=== PATIENT | male | born 1985 | race Two or more races ===

== ENCOUNTER 2017-11-27 18:02 | Emergency (ER) | payer BC ==
--- NOTE | 2017-11-27 19:23 | EDM.PDOC ---
ED HPI GENERAL MEDICAL PROBLEM - General Chief Complaint: Genitourinary Problem Stated Complaint: PASSED OUT Time Seen by Provider: 11/27/17 18:39 Source of Information: Reports: Patient History Limitations: Reports: No Limitations - History of Present Illness INITIAL COMMENTS - FREE TEXT/NARRATIVE: Patient is a 32-year-old male who presents to the ED complaining of intermittent pain with urination with hematuria. Patient states today while urinating he had pain at the end of his void with blood present. Patient states due to the blood and pain, minutes after the episode became queasy, dizzy , hot, clammy that required him to lay down. 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 He denies any fever, abdominal pain, nausea or vomiting, history of STDs or abnormal discharge. He is in a monogamous relationship with his with no concerns for STDs. States he's had experienced similar symptoms in the past but took a antibiotic that was left over prior to being evaluated by a provider with unknown diagnosis. He has no history of prostatitis, orchitis, epididymitis, and/or testicle torsion. Pain is currently 1 out of 10. He's noticed mild swelling to his right testicle. He denies any additional medical history. He is on no meds. Surgical history none. Does not smoke or use recreational drugs. Alcohol use rarely. Patient denies any pain with ejaculation. Had sexual intercourse 2 days ago with no discomfort. There's been no recent trauma that may have precipitated discomfort. Left Lower Abdominal Pain Score (Numeric/FACES): 1 - Related Data Allergies Allergy/AdvReac Type Severity Reaction Status Date / Time egg Allergy Rash Verified 11/27/17 18:13 peanut Allergy Rash Verified 11/27/17 18:13 shellfish derived Allergy Hives Verified 11/27/17 18:13 Home Meds: Home Meds Ciprofloxacin HCl [Cipro] 500 mg PO BID #20 tablet 11/27/17 [Rx] Doxycycline [Vibramycin] 100 mg IV Q12H #60 vial 11/27/17 [Rx] Past Medical History - Past Health History Medical/Surgical History: Denies Medical/Surgical History Neurological History: Reports: Other (See Below) Other Neuro History: Sensitive vagal nerve Social & Family History - Family History Family Medical History: Noncontributory - Tobacco Use Smoking Status *Q: Never Smoker - Recreational Drug Use Recreational Drug Use: No ED ROS GENERAL - Review of Systems Review Of Systems: See Below Constitutional: Reports: No Symptoms HEENT: Reports: No Symptoms Respiratory: Reports: No Symptoms Cardiovascular: Reports: No Symptoms GI/Abdominal: Reports: No Symptoms : Reports: Dysuria, Hematuria. Denies: Discharge, Flank Pain, Frequency, Irregular Menses, Pain, Urgency, Urinary Retention Musculoskeletal: Reports: No Symptoms Skin: Reports: No Symptoms Neurological: Reports: Other (vasovagal near syncope episode) ED EXAM, RENAL/ - Physical Exam Exam: See Below Exam Limited By: No Limitations General Appearance: Alert, WD/WN, Anxious Ears: Hearing Grossly Normal Nose: Normal Inspection Throat/Mouth: Normal Voice, No Airway Compromise Head: Atraumatic, Normocephalic Neck: Normal Inspection, Supple Respiratory/Chest: No Respiratory Distress, Lungs Clear, Normal Breath Sounds Cardiovascular: Normal Peripheral Pulses, Regular Rate, Rhythm GI/Abdominal: Normal Bowel Sounds, Soft, Non-Tender, No Organomegaly, No Distention (Male) Exam: No Hernia, Cremasteric Reflex, Testicular Tenderness (R) (0-10, 1). No: Scrotal Swelling, Scrotum Tenderness (R), Testicular Mass Rectal (Males) Exam: Deferred Neurological: Alert, Oriented, CN II-XII Intact, Normal Cognition, No Motor/ Sensory Deficits Psychiatric: Normal Affect, Normal Mood Skin Exam: Warm, Dry, Intact, Normal Color, No Rash Course - Vital Signs Last Recorded V/S: Last Vital Signs Temp 97.3 F 11/27/17 18:09 Pulse 59 L 11/27/17 18:09 Resp 16 11/27/17 18:09 BP 127/86 11/27/17 18:09 Pulse Ox 100 11/27/17 18:09 - Orders/Labs/Meds Orders: Active Orders 24 hr Category Date Time Status CULTURE URINE [RM] Stat Lab 11/27/17 20:05 Results Labs: Laboratory Tests 11/27/17 11/27/17 11/27/17 Range/Units 19:30 19:30 20:05 WBC 9.54 H (4.23-9.07) K/mm3 RBC 5.13 (4.63-6.08) M/mm3 Hgb 15.4 (13.7-17.5) gm/L Hct 45.4 (40.1-51.0) % MCV 88.5 (79.0-92.2) fl MCH 30.0 (25.7-32.2) pg MCHC 33.9 (32.2-35.5) g/dl RDW Std Deviation 41.7 (35.1-43.9) fL Plt Count 259 (163-337) K/mm3 MPV 9.9 (9.4-12.3) fl Neut % (Auto) 77.0 H (34.0-67.9) % Lymph % (Auto) 14.8 L (21.8-53.1) % [place] % (Auto) 5.6 (5.3-12.2) % Eos % (Auto) 2.0 (0.8-7.0) Baso % (Auto) 0.4 (0.1-1.2) % Neut # (Auto) 7.35 H (1.78-5.38) K/mm3 Lymph # (Auto) 1.41 (1.32-3.57) K/mm3 [place] # (Auto) 0.53 (0.30-0.82) K/mm3 Eos # (Auto) 0.19 (0.04-0.54) K/mm3 Baso # (Auto) 0.04 (0.01-0.08) K/mm3 C-Reactive Protein < 0.2 (<1.0) mg/dL Urine Color Light yellow (Yellow) Urine Appearance Slt cloudy H (Clear) Urine pH 7.0 (5.0-8.0) Ur Specific [place] 1.015 (1.005-1.030) Urine Protein Negative (Negative) Urine Glucose (UA) Negative (Negative) Urine Ketones Negative (Negative) Urine Occult Blood 2+ H (Negative) Urine Nitrite Negative (Negative) Urine Bilirubin Negative (Negative) Urine Urobilinogen 0.2 (0.2-1.0) Ur Leukocyte Esterase 1+ H (Negative) Urine RBC 5-10 H (0-5) /hpf Urine WBC 10-20 H (0-5) /hpf Ur Epithelial Cells 0-5 (0-5) /hpf Urine Bacteria Rare (FEW) /hpf Fine Granular Casts 0-5 (0-5) /lpf Urine Mucus Not seen (FEW) /hpf C trachomatis DNA (PCR) N gonorrhoeae DNA (PCR) 11/27/17 Range/Units 20:42 WBC (4.23-9.07) K/mm3 RBC (4.63-6.08) M/mm3 Hgb (13.7-17.5) gm/L Hct (40.1-51.0) % MCV (79.0-92.2) fl MCH (25.7-32.2) pg MCHC (32.2-35.5) g/dl RDW Std Deviation (35.1-43.9) fL Plt Count (163-337) K/mm3 MPV (9.4-12.3) fl Neut % (Auto) (34.0-67.9) % Lymph % (Auto) (21.8-53.1) % [place] % (Auto) (5.3-12.2) % Eos % (Auto) (0.8-7.0) Baso % (Auto) (0.1-1.2) % Neut # (Auto) (1.78-5.38) K/mm3 Lymph # (Auto) (1.32-3.57) K/mm3 [place] # (Auto) (0.30-0.82) K/mm3 Eos # (Auto) (0.04-0.54) K/mm3 Baso # (Auto) (0.01-0.08) K/mm3 C-Reactive Protein (<1.0) mg/dL Urine Color (Yellow) Urine Appearance (Clear) Urine pH (5.0-8.0) Ur Specific [place] (1.005-1.030) Urine Protein (Negative) Urine Glucose (UA) (Negative) Urine Ketones (Negative) Urine Occult Blood (Negative) Urine Nitrite (Negative) Urine Bilirubin (Negative) Urine Urobilinogen (0.2-1.0) Ur Leukocyte Esterase (Negative) Urine RBC (0-5) /hpf Urine WBC (0-5) /hpf Ur Epithelial Cells (0-5) /hpf Urine Bacteria (FEW) /hpf Fine Granular Casts (0-5) /lpf Urine Mucus (FEW) /hpf C trachomatis DNA (PCR) Not detected N gonorrhoeae DNA (PCR) Not detected Meds: Medications Discontinued Medications Generic Name Dose Route Start Last Admin Trade Name Freq PRN Reason Stop Dose Admin Ceftriaxone Sodium 250 mg/ 0 mg 11/27/17 21:15 11/27/17 21:19 Lidocaine HCl 0.9 ml IM 1 syringe Q24H BRAEDEN Administration - Re-Assessments/Exams Free Text/Narrative Re-Assessment/Exam: Suspect patient has orchitis caused by prostatitis although he does not have any perennial pain. Patient defers rectal exam. Will obtain UA with G/C, cbc, and crp. Discussed with Dr. Finnegan and he agrees. He suggests cipro 500mg twice a day for 10 days and then doxycycline 100mg b.i.d for 30 days. 11/27/17 21:04 Called lab and will be 1.5 hours until the GC results are back. I have ordered rocephin 250mg IM. Patient will be provided a prescription for cipro and doxy. 11/27/17 21:45 Per nursing staff patient was administered Rocephin IM patient melani down to a heart rate of 39 became pale, clammy, and diaphoretic. This subsided quickly. On reevaluation patient has no symptoms at this time. Will have go picker tender helper the prescription for the Cipro and doxycycline and then come back and pick the patient up. Vital signs are stable. The patient remained hemodynamically stable while under my care in the E.D. I discussed the concerning symptoms for which to return to the E.D. with the patient/family. The patient/family verbalized understanding. All questions were answered. GC negative. Departure - Departure Time of Disposition: 21:07 Disposition: Home, Self-Care 01 Condition: Good Clinical Impression: Epididymitis, Orchiditis - Discharge Information Prescriptions: Ciprofloxacin HCl [Cipro] 500 mg PO BID #20 tablet Doxycycline [Vibramycin] 100 mg IV Q12H #60 vial Instructions: Orchitis, Epididymitis Referrals: Raghav Gutiérrez Jr, MD [Primary Care Provider] - Forms: ED Department Discharge Additional Instructions: Will treat she for epididymitis/orchitis. Suspect this may related to prostatitis. You received Rocephin 250 mg IM here in the ED. Will restart taking taking Cipro 500 mg twice a day for 10 days this evening. Then switch to doxycycline 100 mg twice a day for 30 days. Treatment for prostatis requires extended antibiotic coverage. Use a OTC probiotic. For pain take Tylenol and ibuprofen in alternating fashion. Refrain from sexual intercourse. Follow-up with PCP in the next 3 days if symptoms are not improving. Return to the ED if you develop any new or worsening symptoms. Urine culture obtained if change in antibiotic required you will be notified. - My Orders Last 24 Hours: My Active Orders 11/27/17 20:05 CULTURE URINE [RM] Stat - Assessment/Plan Last 24 Hours: My Active Orders 11/27/17 20:05 CULTURE URINE [RM] Stat
[2017-11-27] MEDS ORDERED: cefTRIAXone 250 MG, Lidocaine 1% 0.5 ML IM SCH ×2 (21:15)
[2017-11-27] MEDS ORDERED: cefTRIAXone 250 MG, Lidocaine 1% 0.9 ML IM SCH ×2 (21:15)
[2017-11-27 22:21] LABS: C. TRACHOMATIS BY PCR NOT DETECTED; N. GONORRHOEAE BY PCR NOT DETECTED
== END 2017-11-27 21:50 | disposition home or self-care (01) ==
LOC: JD.ED 18:02
DX: N45.3 Epididymo-orchitis (principal); Z91.012 Allergy to eggs; Z91.018 Allergy to other foods; Z91.013 Allergy to seafood
CPT/HCPCS: 36415; 81001; 85025; 86140; 87086; 87088; 87491; 87591; 96372; 99284; J0696; 99283

== ENCOUNTER 2020-09-26 05:20 | Emergency (ER) | payer BC ==
[2020-09-26] MEDS ORDERED: Ondansetron 4 MG/2 ML SDV IVPUSH ONE (05:44)
[2020-09-26] MEDS ORDERED: Sodium Chloride 0.9% 10 ML Syringe FLUSH PRN (05:44)
[2020-09-26] MEDS ORDERED: Sodium Chloride 0.9% 1,000 ML IV SCH (05:45)
--- NOTE | 2020-09-26 05:52 | EDM.PDOC ---
ED HPI GENERAL MEDICAL PROBLEM - General Chief Complaint: Syncope Stated Complaint: SYNCOPE Time Seen by Provider: 09/26/20 05:25 Source of Information: Reports: Patient, EMS, Family () History Limitations: Reports: No Limitations - History of Present Illness INITIAL COMMENTS - FREE TEXT/NARRATIVE: The patient presents by [facility] for syncope and possible seizure activity. The patient and his had a baby 4 days ago. Just prior to arrival the patient was woken up by his because he was shaking and looked pale. He got up to use the restroom and got nauseated and felt like he was going to have a bowel movement. He then passed out for about a minute. His eyes rolled in the back of his head and he was shaking like a seizure. He woke up and was alert. He says he has a history of sensitive vagus nerve where he will pass out easily. He had an episode in 2018. He ended up having prostatitis. He says now he feels better. He is still a little nauseated. He feels a little lightheaded. He has no fever but he did have chills earlier. He has no headache. He has no cough, chest pain, shortness of breath, abdominal pain, dysuria or diarrhea. Onset: Sudden Duration: Minutes: Severity: Moderate Improves with: Reports: None Worsens with: Reports: None Associated Symptoms: Reports: Fever/Chills, Nausea/Vomiting. Denies: Chest Pain, Cough, Headaches, Shortness of Breath Left Hip Pain Score (Numeric/FACES): 1 - Related Data Allergies Allergy/AdvReac Type Severity Reaction Status Date / Time egg Allergy Rash Verified 09/26/20 05:34 peanut Allergy Rash Verified 09/26/20 05:34 shellfish derived Allergy Hives Verified 09/26/20 05:34 Home Meds: Home Meds Ciprofloxacin HCl [Cipro] 500 mg PO BID #20 tablet 11/27/17 [Rx] Doxycycline [Vibramycin] 100 mg IV Q12H #60 vial 11/27/17 [Rx] levETIRAcetam [Keppra] 500 mg PO BID #60 tab 09/26/20 [Rx] Past Medical History - Past Health History Medical/Surgical History: Denies Medical/Surgical History Cardiovascular History: Reports: Syncope Neurological History: Reports: Other (See Below) Other Neuro History: Sensitive vagal nerve Social & Family History - Family History Family Medical History: No Pertinent Family History - Tobacco Use Tobacco Use Status *Q: Never Tobacco User - Caffeine Use Caffeine Use: Reports: Coffee - Recreational Drug Use Recreational Drug Use: No ED ROS GENERAL - Review of Systems Review Of Systems: See Below Constitutional: Reports: Chills. Denies: Fever HEENT: Reports: No Symptoms Respiratory: Reports: No Symptoms Cardiovascular: Reports: No Symptoms Endocrine: Reports: No Symptoms GI/Abdominal: Reports: Nausea. Denies: Abdominal Pain, Diarrhea, Vomiting : Reports: No Symptoms Musculoskeletal: Reports: No Symptoms - Physical Exam Exam: See Below Exam Limited By: No Limitations General Appearance: Alert, No Apparent Distress Ears: Normal External Exam Nose: Normal Inspection Head Exam: Atraumatic, Normocephalic Neck: Normal Inspection Respiratory/Chest: No Respiratory Distress, Lungs Clear, Normal Breath Sounds Cardiovascular: Regular Rate, Rhythm, No Edema, No Murmur GI/Abdominal: Soft, Non-Tender, No Organomegaly, No Mass Neuro Exam (Abbreviated): Alert, Oriented, No Motor/Sensory Deficits Extremities: Normal Inspection #1 Interpretation EKG Date: 09/26/20 Time: 05:57 Rhythm: NSR Rate (Beats/Min): 61 [place]: Normal P-Wave: Present QRS: Normal ST-T: Normal QT: Normal Course - Vital Signs Last Recorded V/S: Last Vital Signs Temp 96.9 F 09/26/20 05:25 Pulse 69 09/26/20 05:25 Resp 17 09/26/20 05:25 BP 114/65 09/26/20 05:25 Pulse Ox 100 09/26/20 05:25 - Orders/Labs/Meds Orders: Active Orders 24 hr Category Date Time Status Cardiac Monitoring [RC] . DIRECTED Care 09/26/20 05:44 Active EKG Documentation Completion [RC] STAT Care 09/26/20 05:45 Active Peripheral IV Care [RC] . DIRECTED Care 09/26/20 05:45 Active UA W/MICROSCOPIC [URIN] Stat Lab 09/26/20 05:44 Ordered Sodium Chloride 0.9% [Normal Saline] 1,000 ml Med 09/26/20 05:45 Active IV .BOLUS Sodium Chloride 0.9% [Saline Flush] Med 09/26/20 05:44 Active 10 ml FLUSH ASDIRECTED PRN levETIRAcetam [Keppra] 1,000 mg Med 09/26/20 06:55 Active Sodium Chloride 0.9% [Normal Saline] 100 ml IV ONETIME ED Antiemetic Medication Reflex [OM.PC] Stat Oth 09/26/20 05:44 Ordered Peripheral IV Insertion Adult [OM.PC] Stat Oth 09/26/20 05:44 Ordered Medication Orders Sodium Chloride (Normal Saline) 1,000 mls @ 1,000 mls/hr IV .BOLUS BRAEDEN Last Admin: 09/26/20 06:01 Dose: 1,000 mls/hr Documented by: [place] Levetiracetam 1,000 mg/ Sodium (Chloride) 110 mls @ 400 mls/hr IV ONETIME ONE Stop: 09/26/20 07:09 Sodium Chloride (Saline Flush) 10 ml FLUSH ASDIRECTED PRN PRN Reason: Keep Vein Open Last Admin: 09/26/20 06:02 Dose: 10 ml Documented by: [place] Labs: Laboratory Tests 09/26/20 09/26/20 Range/Units 06:05 06:05 WBC 5.01 (4.23-9.07) K/mm3 RBC 5.03 (4.63-6.08) M/mm3 Hgb 15.2 (13.7-17.5) gm/dl Hct 45.5 (40.1-51.0) % MCV 90.5 (79.0-92.2) fl MCH 30.2 (25.7-32.2) pg MCHC 33.4 (32.2-35.5) g/dl RDW Std Deviation 43.2 (35.1-43.9) fL Plt Count 229 (163-337) K/mm3 MPV 10.1 (9.4-12.3) fl Neut % (Auto) 55.7 (34.0-67.9) % Lymph % (Auto) 33.5 (21.8-53.1) % [place] % (Auto) 6.2 (5.3-12.2) % Eos % (Auto) 3.8 (0.8-7.0) Baso % (Auto) 0.4 (0.1-1.2) % Neut # (Auto) 2.79 (1.78-5.38) K/mm3 Lymph # (Auto) 1.68 (1.32-3.57) K/mm3 [place] # (Auto) 0.31 (0.30-0.82) K/mm3 Eos # (Auto) 0.19 (0.04-0.54) K/mm3 Baso # (Auto) 0.02 (0.01-0.08) K/mm3 Sodium 144 (136-145) mEq/L Potassium 4.1 (3.5-5.1) mEq/L Chloride 106 (98-107) mEq/L Carbon Dioxide 29 (21-32) mEq/L Anion Gap 13.1 (5-15) BUN 16 (7-18) mg/dL Creatinine 1.0 (0.7-1.3) mg/dL Est Cr Clr Drug Dosing 98.23 mL/min Estimated GFR (MDRD) > 60 (>60) mL/min BUN/Creatinine Ratio 16.0 (14-18) Glucose 110 H (74-106) mg/dL Calcium 8.8 (8.5-10.1) mg/dL Magnesium 2.0 (1.8-2.4) mg/dl Total Bilirubin 0.4 (0.2-1.0) mg/dL AST 14 L (15-37) U/L ALT 24 (16-63) U/L Alkaline Phosphatase 80 (46-116) U/L C-Reactive Protein <0.2 (<1.0) mg/dL Total Protein 6.9 (6.4-8.2) g/dl Albumin 3.9 (3.4-5.0) g/dl Globulin 3.0 gm/dL Albumin/Globulin Ratio 1.3 (1-2) Meds: Medications Generic Name Dose Route Start Last Admin Trade Name Freq PRN Reason Stop Dose Admin Sodium Chloride 1,000 mls @ 1,000 mls/hr 09/26/20 05:45 09/26/20 06:01 Normal Saline IV 1,000 mls/hr .BOLUS BRAEDEN Administration Levetiracetam 1,000 mg/ Sodium 110 mls @ 400 mls/hr 09/26/20 06:55 Chloride IV 09/26/20 07:09 ONETIME ONE Sodium Chloride 10 ml 09/26/20 05:44 09/26/20 06:02 Saline Flush FLUSH 10 ml ASDIRECTED PRN Administration Keep Vein Open Discontinued Medications Generic Name Dose Route Start Last Admin Trade Name Christiano PRN Reason Stop Dose Admin Ondansetron HCl 4 mg 09/26/20 05:44 09/26/20 06:01 Zofran IVPUSH 09/26/20 05:45 4 mg ONETIME ONE Administration - Re-Assessments/Exams Free Text/Narrative Re-Assessment/Exam: 09/26/20 05:53 I ordered an IV NS 1L bolus, zofran 4mg IV, labs, UA, EKG and a CT of his head. 09/26/20 06:48 The EKG shows a NSR and nothing acute. The CT of his head looks good. His CBC and CMP look good. He feels better. I called the neurologist marine engineering consultant Dr Charlton and talked with him. 09/26/20 07:03 He felt this was a seizure. He wanted the patient loaded with keppra 1 gram IV and put him on keppra 500mg BID. He also recommended follow up with neurology and an EEG. He wanted me to tell the patient no driving. Departure - Departure Time of Disposition: 07:35 Disposition: Home, Self-Care 01 Condition: Good Clinical Impression: Seizure Syncope Qualifiers: Syncope type: unspecified Qualified Code(s): R55 - Syncope and collapse - Discharge Information *PRESCRIPTION DRUG MONITORING PROGRAM REVIEWED*: Not Applicable *COPY OF PRESCRIPTION DRUG MONITORING REPORT IN PATIENT JOIE: Not Applicable Prescriptions: levETIRAcetam [Keppra] 500 mg PO BID #60 tab Referrals: Marcos Tam MD [Primary Care Provider] - Demetri Charlton MD [Ordering Only Provider] - 1 Week Forms: ED Department Discharge Additional Instructions: Take the keppra 500mg 2 times per day. Try to get enough sleep and avoid alcohol. Both can make your more prone to have a seizure. Follow up with a neurologist like Dr Charlton at [facility] in [place] or one of the neurologists at [place]. Do not drive until your are cleared by neurology. Also avoid swimming and baths in case you have a seizure. Please return if you have any more problems. Sepsis Event Note (ED) - Evaluation Sepsis Screening Result: No Definite Risk - Focused Exam Vital Signs: Vital Signs Temp Pulse Resp BP Pulse Ox 09/26/20 05:25 96.9 F 69 17 114/65 100 - My Orders Last 24 Hours: My Active Orders 09/26/20 05:44 Cardiac Monitoring [RC] . DIRECTED UA W/MICROSCOPIC [URIN] Stat Sodium Chloride 0.9% [Saline Flush] 10 ml FLUSH ASDIRECTED PRN ED Antiemetic Medication Reflex [OM.PC] Stat Peripheral IV Insertion Adult [OM.PC] Stat 09/26/20 05:45 EKG Documentation Completion [RC] STAT Peripheral IV Care [RC] . DIRECTED Sodium Chloride 0.9% [Normal Saline] 1,000 ml IV .BOLUS 09/26/20 06:55 levETIRAcetam [Keppra] 1,000 mg Sodium Chloride 0.9% [Normal Saline] 100 ml IV ONETIME - Assessment/Plan Last 24 Hours: My Active Orders 09/26/20 05:44 Cardiac Monitoring [RC] . DIRECTED UA W/MICROSCOPIC [URIN] Stat Sodium Chloride 0.9% [Saline Flush] 10 ml FLUSH ASDIRECTED PRN ED Antiemetic Medication Reflex [OM.PC] Stat Peripheral IV Insertion Adult [OM.PC] Stat 09/26/20 05:45 EKG Documentation Completion [RC] STAT Peripheral IV Care [RC] . DIRECTED Sodium Chloride 0.9% [Normal Saline] 1,000 ml IV .BOLUS 09/26/20 06:55 levETIRAcetam [Keppra] 1,000 mg Sodium Chloride 0.9% [Normal Saline] 100 ml IV ONETIME
--- NOTE | 2020-09-26 06:37 | CT ---
Head CT Technique: Multiple axial sections through the brain were obtained. Intravenous contrast was not utilized. Reconstructed coronal and sagittal images were also obtained. Comparison: No prior intracranial imaging is available. Findings: Ventricles along with basal cisterns and sulci over the convexities are within normal limits for the patient's age. No abnormal parenchymal densities are seen. No evidence of intracranial hemorrhage. No midline shift or mass-effect is appreciated. Bone window settings were reviewed. Visualized mastoid sinuses and paranasal sinuses show nothing acute. No acute calvarial finding is appreciated. Impression: 1. Nothing acute is seen on noncontrast head CT study. Diagnostic code #1
[2020-09-26] MEDS ORDERED: levETIRAcetam 1,000 MG in Sodium Chloride 0.9% 100 ML IV ONE (06:55)
== END 2020-09-26 07:45 | disposition home or self-care (01) ==
LOC: JD.ED 05:20
DX: R55 Syncope and collapse (principal); R56.9 Unspecified convulsions; R11.0 Nausea; R68.83 Chills (without fever); Z91.013 Allergy to seafood; Z91.012 Allergy to eggs; Z91.010 Allergy to peanuts; Z79.899 Other long term (current) drug therapy
CPT/HCPCS: 36415; 70450; 80053; 81001; 83735; 85025; 86140; 93005; 96365; 96375; 99285; J1953; J2405; J7030; 93010; 99284